=== PATIENT | male | born 1990 | race Caucasian/White ===

== ENCOUNTER 2016-12-30 09:05 | Emergency (ER) | payer SELFPAY ==
[~2016-12-30] VITALS: Ht 182.9 cm; Wt 90.3 kg
--- NOTE | 2016-12-30 09:18 | NUR ---
Patient BIB family, transferred to bed 7 via wheelchair by tech. RN evaluating patient at bedside.
--- NOTE | 2016-12-30 09:21 | NUR ---
26/M BIB [facility] C/O AFTER PASSING STOOL & WIPE BLOODY STOOL X YETERDAY MORNING. PT STATES HAS RIGHT ABDOMINAL PAIN ;NON REDIATING & NAUSEA & RED SPOT RIGHT ABDOMEN NOTED THIS TIME. PT DENIES V/D;AAOX4 WITH EVEN AND STEADY GAIT; LUNGS CLEAR BL; HR EVEN AND REGULAR; PT DENIES ANY FEVER, CP, SOB, OR COUGH AT THIS TIME; PATIENT STATES PAIN OF 8/10 AT THIS TIME; VSS; PATIENT POSITIONED FOR COMFORT; HOB ELEVATED; BEDRAILS UP X2; BED DOWN. ER MD MADE AWARE OF PT STATUS.
--- NOTE | 2016-12-30 09:35 | NUR ---
ER MD DR BLACKMON EVALUATING PT AT THIS TIME.
[2016-12-30] MEDS ORDERED: NACL 0.9% 1,000 ML IV SCH (09:42)
[2016-12-30] MEDS ORDERED: KETOROLAC 30 MG/ML VIAL IVP ONE (09:45)
[2016-12-30] MEDS ORDERED: ONDANSETRON 4 MG/2 ML VIAL IVP ONE (09:45)
--- NOTE | 2016-12-30 09:53 | NUR ---
LAB AT BEDSIDE
[2016-12-30 09:58] LABS: BASOPHILS # (AUTO) 0.1 K/uL (0.00-0.22); BASOPHILS % (AUTO) 0.8 % (0.0-2.0); EOSINOPHILS # (AUTO) 0.1 K/uL (0-0.4); EOSINOPHILS % (AUTO) 1.8 % (0.0-4.0); HEMATOCRIT 45.2 % (36-52); HEMOGLOBIN 15.4 g/dL (12.0-18.0); LYMPHOCYTES # (AUTO) 0.8 K/uL (2.0-11.5); LYMPHOCYTES % (AUTO) 10.3 % (20.5-51.1); MEAN CORPUSCULAR HEMOGLOBIN 27 pg (27-31); MEAN CORPUSCULAR HGB CONC 34 g/dL (33-37); MEAN CORPUSCULAR VOLUME 80 fL (80-94); MONOCYTES # (AUTO) 0.8 K/uL (0.8-1.0); MONOCYTES % (AUTO) 10.5 % (1.7-9.3); NEUTROPHILS # (AUTO) 5.5 K/uL (1.8-7.7); NEUTROPHILS % (AUTO) 76.6 % (42.2-75.2); PLATELET COUNT (AUTO) 231 K/uL (140-450); RED BLOOD CELL COUNT(AUTO) 5.62 MIL/uL (4.20-6.10); RED CELL DISTRIBUTION WIDTH 12.1 % (11.6-13.7); WHITE BLOOD COUNT (AUTO) 7.3 K/uL (4.8-10.8)
--- NOTE | 2016-12-30 10:00 | NUR ---
Lexii barber in ED - 12/30/16 at 1005 by [employer]1 PT TAKEN TO CT VIA MILY ACCOMPANIED BY SENIOR IT SECURITY ANALYST.
--- NOTE | 2016-12-30 10:00 | NUR ---
Patient taken to CT scan via gurney by [employer].
--- NOTE | 2016-12-30 10:03 | NUR ---
Lexii barber in ED - 12/30/16 at 1023 by MED1 PT TAKEN TO CT VIA MILY ACCOMPANIED BY S[employer] CONSULTANT.
[2016-12-30 10:06] LABS: ANION GAP 15.2 (8-16); CALCIUM 8.7 mg/dL (8.5-10.1); CARBON DIOXIDE 25.4 mmol/L (21-32); POTASSIUM 3.6 mmol/L (3.5-5.1)
[2016-12-30 10:12] LABS: ALBUMIN 4.2 g/dL (3.4-5.0); TOTAL BILIRUBIN 0.8 mg/dL (0.0-1.0); TOTAL PROTEIN, SERUM 7.9 g/dL (6.4-8.2)
--- NOTE | 2016-12-30 11:00 | NUR ---
IV removed, catheter intact and site benign. Applied folded 4x4 gauze and tape to stop bleeding.
[2016-12-30 11:23] VITALS: BP 101/61
--- NOTE | 2016-12-30 11:23 | NUR ---
Patient discharged with v/s stable. Written and verbal after care instructions given and explained. Patient alert, oriented and verbalized understanding of instructions. Ambulatory with steady gait. All questions addressed prior to discharge. ID band removed. Patient advised to follow up with PMD. Rx of ZOFRAN, CORCO & MOTRIN given. Patient educated on indication of medication including possible reaction and side effects. Opportunity to ask questions provided and answered.
== END 2016-12-30 11:23 | disposition home or self-care (01) ==
LOC: MED 09:05
DX: R10.31 Right lower quadrant pain (principal); R11.0 Nausea; R68.83 Chills (without fever); F17.200 Nicotine dependence, unspecified, uncomplicated
CPT/HCPCS: 36415; 74176; 80053; 81002; 83690; 85025; 96361; 96374; 96375; 99285; J1885; J2405; J7030